=== PATIENT | female | born 1945 | race Hispanic/Latino ===

== ENCOUNTER 2017-04-08 22:03 | Inpatient (IN) | payer MEDICARE, BC ==
[2017-04-08 22:04] VITALS: BMI 27.1
--- NOTE | 2017-04-08 22:11 | ED PDOC ---
Psych Transfer Clearance - Clearance Statement Clearance Statement: Reviewed vital signs, lab results and transfer papers. Patient clinically stable for psychiatric admission.
[2017-04-08 22:15] VITALS: O2SAT 100
[2017-04-08] MEDS ORDERED: Magnesium Hydroxide Susp 30 ml UD PO PRN (22:30)
[2017-04-08] MEDS ORDERED: Bismuth Subsalicylate 262 mg/15 ml Sus (240 ml) PO PRN (22:30)
[2017-04-09 05:21] LABS: RBC URINE 4 /hpf (0-3); URINE BACTERIA RARE (<OCC); URINE BILIRUBIN NEGATIVE (NEGATIVE); URINE BLOOD SMALL (NEGATIVE); URINE COLOR YELLOW (YELLOW); URINE GLUCOSE (UA) NEG (Normal); URINE KETONE NEGATIVE (NEGATIVE); URINE LEUKOCYTE ESTERASE NEG Leu/uL (Negative); URINE PROTEIN NEGATIVE (NEGATIVE); URINE UROBILINOGEN 0.2-1.0 mg/dL (0.2-1.0); WBC URINE 5 /hpf (0-5)
[2017-04-09 07:42] LABS: IRON 32 ug/dL (37-170)
[2017-04-09 07:50] LABS: T4 6.25 ug/dl (5.5-11.0)
[2017-04-09 08:03] LABS: THYROID STIMULATING HORMONE 1.11 mIU/ML (0.46-4.68)
--- NOTE | 2017-04-09 09:40 | PCM.PSYCH ---
Initial Psychiatric Evaluation - Initial Psychiatric Evaluation Type of Admission: Voluntary Legal Status: Capacity Chief Complaint (in patient's own words): "I'm depressed." Patient's Reaction to Hospitalization: Patient is a poor historian. She can not recall her medications or dates of previous treatment. HPI: 72 yo female w/ h/o MDD, anxiety, personality disorder, presented to [facility] with complians of taking care of herself, worsening depression, and complaints that she is addicted to Ambien. Patient also has a history of benzodiazepine dependence since . Pt is currently expressed suicidal intent in the ER and requested to be admitted to secure both detoxification treatment and mental health services as patient has not been seen psychiatrically for the last several months. Patient is now denying any active suicidal ideation/plan/intent, but does report feeling that she wishes she weren 't alive due to her chronic depression. She denies psychosis. NO AH/VH/ paranoia/delusions. +Anxiety. Patient gives very limited history, unclear if it is due to cognitive deficits. Collateral from ER: progress worker spoke with the pts sister, Lulu, at 5:30pm who stated that the pt was supposed to present to the ER requesting detox as the pt abuses Ativan and Xanax. The pts sister reports that the pt has been abusing prescription medicine since 1971. The pts sister also reported that the pt was hospitalized at [facility] 2 times since . The pts sister reports that the pt is linked to to a psychiatrist which the pt is compliant with. The pts sister reports that the pt also has a bad memory due to the abuse of prescibed medication. PHx: Pt reported a history of psychiatric admissions at [facility] and outpatient treatment with Dr. Jernigan and Dr. Flowers. As per collateral history, patient has a history of multiple psychiatric admissions, most recent to [facility] 02/25/17- for MDD and personality disorder. At that time she was discharged on Ambien 5 mg PO HS, Topiramate 50 mg PO BID, Zyprexa 2.5 mg PO BID, Ativan 0.5 mg PO TID. PMHx: Anxiety, Depression, Fractures (right hip, left wrist), HTN, Hypercholesterolemia, h/o Seizures (patient unable to give more information) SHx: Pt reported graduating [employer] in [place], [place]. 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 Pt resides with her sister in [facility] in an apt. Denies ilicit drug use. Current Medications: Active Medications Generic Name Dose Route Start Last Admin Trade Name Freq PRN Reason Stop Dose Admin Acetaminophen 650 mg 04/08/17 22:30 Tylenol 325mg Tab PO Q4 PRN Pain, moderate (4-7) Al Hydrox/Mg Hydrox/Simethicone 30 ml 04/08/17 22:30 Maalox Plus 30 Ml PO Q4 PRN Dyspepsia Bismuth Subsalicylate 524 mg 04/08/17 22:30 Pepto-Bismol PO Q4 PRN Diarrhea Lorazepam 0.5 mg 04/08/17 22:30 04/08/17 23:07 Ativan PO 04/22/17 22:31 0.5 mg HS PRN Administration Insomnia Lorazepam 0.5 mg 04/09/17 09:21 Ativan PO TID PRN Anxiety Magnesium Hydroxide 30 ml 04/08/17 22:30 Milk Of Magnesia PO HS PRN Constipation Mirtazapine 15 mg 04/09/17 22:00 Remeron PO HS [place] Olanzapine 5 mg 04/09/17 22:00 Zyprexa PO HS [place] Topiramate 50 mg 04/09/17 09:30 Topamax PO BID [place] Past Psychiatric History - Past Psychiatric History Previous Treatment History: Inpatient Pertinent Medical Hx (Current Medical&Sleep Prob, Allergies): Allergies Allergy/AdvReac Type Severity Reaction Status Date / Time No Known Allergies Allergy Verified 04/08/17 22:05 Benztropine [Benztropine Mesylate] 1 mg PO TID 04/08/17 Megestrol [Megace] 40 mg PO BID 04/08/17 Mirtazapine [Remeron] 15 mg PO HS 04/08/17 Topiramate 50 mg PO BID 04/08/17 Zolpidem [Ambien] 5 mg PO HS PRN 04/08/17 Review of Systems - Psychiatric Psychiatric: As Per HPI, Abnormal Sleep Pattern, Anhedonia, Anxiety, Change in Appetite, Depression, Difficulty Concentrating, Mood Swings, Suicidal Ideation Mental Status Examination - Personal Presentation Personal Presentation: Looks stated age - Affect Affect: Constricted - Motor Activity Motor Activity: Calm - Reliability in Providing Information Reliability in Providing Information: Poor, due to cognitve impairment - Speech Speech: Coherent - Mood Mood: Depressed, Anxious - Formal Thought Process Formal Thought Process: No Impairment - Obsessions/Compulsions Obsessions: No Compulsions: No - Cognitive Functions Orientation: Person, Place, Situation, Time Sensorium: Alert Judgement: Intact, as evidence by: Insight regarding need for hospitalization Memory: Recent impaired, as evidence by: Inability to recall events of the day, Recent imparied as evidence by:Inability to complete 3/3 object recall, Remote impaired as evidenced by: Inability to recall sig life events, Remote impaired as evidenced by: Inability to recall historical events - Risk Risk: Suicidal, Diminished functioning - Strength & Assets Inventory Strength & Assets Inventory: Family support, Cooperative - Limitations Limitations: Decreased memory, recent DSM 5 DX - DSM 5 DSM 5 Diagnosis: Major Depressive Disorder, Generalized Anxiety Disorder, Benzodiazepine Abuse, Personality Disorder unspecified - Recommended/Plan of Treatment Treatment Recommendations and Plan of Treatment: -Admit to jan psychiatry -Continue medications from previous psychiatric admission: Topamax 50 mg PO BID , Ativan 0.5 mg PO TID PRN, Zyprexa 5 mg PO HS -Start Remeron 15 mg PO HS -Start Ambien -Medicine consult -Psychology consult for evaluation of dementia -Individual and group therapy -No 1:1 needed, patient can contract for safety -Disposition planning Projected ELOS: 5-7 days Prognosis: Poor Discharge Plan and Discharge Criteria: Discharge when psychiatrically stable - Smoking Cessation Smoking Cessation Initiated: No Reason for not providing: Not indicated
--- NOTE | 2017-04-09 14:36 | CP.PCM.CON ---
History of Present Illness - History of Present Illness History of Present Illness: Reason For Consult: Per protocol 71 year old F PMH HTN admitted for depression, and ambien addiction. Patient stated she had suicidal ideations in the emergency room. She denies any CP, SOB, ABD PAIN, N/V/C/D, dysuria, blood in urine or stool, melena. ROS otherwise negative, 12 systems reviewed PMH HTN PSH NONE FH NONE SH Denies tobacco, ETOH, IVDU MEDS as below, for HTN lisinopril 10 mg po daily ALLERGIES NKDA vitals: Temp Pulse Resp BP Pulse Ox 98.1 F 74 20 145/82 100 04/09/17 05:51 04/09/17 12:55 04/09/17 12:55 04/09/17 12:55 04/08/17 22:05 EXAM GEN: thin, cooperative, no acute distress HEENT: NCAT, PERLL, EOMI, MMM, no exudates HEART: S1S2+ RRR NO MRG LUNG: CTAB NO WRR ABD: SOFT NT ND EXT: NO CLUBBING CYANOSIS PULSES+ PSYCH: flat affect, appears anxious LABS: Reviewed and stable Active Medications 04/08/17 22:30 Acetaminophen [Tylenol 325mg tab] 650 mg PO Q4 PRN Aluminum Hydroxide/Magnesium [Maalox Plus 30 ml] 30 ml PO Q4 PRN Bismuth Subsalicylate [Pepto-Bismol] 524 mg PO Q4 PRN LORazepam [Ativan] 0.5 mg PO HS PRN Magnesium Hydroxide [Milk Of Magnesia] 30 ml PO HS PRN LORazepam [Ativan] 0.5 mg PO TID PRN Topiramate [Topamax] 50 mg PO BID Mirtazapine [Remeron] 15 mg PO HS OLANZapine [ZyPREXA] 5 mg PO HS ASSESSMENT AND PLAN: 71 year old F PMH HTN admitted for depression, and ambien addiction. Patient stated she had suicidal ideations in the emergency room. HTN continue lisinopril 10 mg po daily Depression and Ambien addiction management per psych Past Patient History - Past Social History Smoking Status: Never Smoked - CARDIAC Hx Cardiac Disorders: Yes Hx Hypercholesterolemia: Yes Hx Hypertension: Yes - PULMONARY Hx Respiratory Disorders: No Hx Tuberculosis: No - NEUROLOGICAL HX Cerebrovascular Accident: No Hx Seizures: No - HEENT Hx HEENT Problems: No - RENAL Hx Chronic Kidney Disease: No - ENDOCRINE/METABOLIC Hx Endocrine Disorders: No - HEMATOLOGICAL/ONCOLOGICAL Hx Blood Disorders: No Hx Cancer: No Hx Human Immunodeficiency Virus (HIV): No - INTEGUMENTARY Hx Dermatological Problems: No - MUSCULOSKELETAL/RHEUMATOLOGICAL Hx Musculoskeletal Disorders: Yes Hx Falls: Yes Hx Fractures: Yes (R hip, L wrist) - GASTROINTESTINAL Hx Gastrointestinal Disorders: No - GENITOURINARY/GYNECOLOGICAL Hx Sexually Transmitted Disorders: No - PSYCHIATRIC Hx Anxiety: Yes Hx Depression: Yes Hx Substance Use: No - SURGICAL HISTORY Hx Surgeries: Yes Other/Comment: R hip, L wrist - ANESTHESIA Hx Anesthesia: Yes Hx Anesthesia Reactions: No Hx Malignant Hyperthermia: No Has any member of the family had a problem w/ anesthesia?: No Meds Allergies/Adverse Reactions: Allergies Allergy/AdvReac Type Severity Reaction Status Date / Time No Known Allergies Allergy Verified 04/08/17 22:05 - Medications Medications: Current Medications Acetaminophen (Tylenol 325mg Tab) 650 mg PO Q4 PRN PRN Reason: Pain, moderate (4-7) Al Hydrox/Mg Hydrox/Simethicone (Maalox Plus 30 Ml) 30 ml PO Q4 PRN PRN Reason: Dyspepsia Bismuth Subsalicylate (Pepto-Bismol) 524 mg PO Q4 PRN PRN Reason: Diarrhea Lorazepam (Ativan) 0.5 mg PO HS PRN PRN Reason: Insomnia Stop: 04/22/17 22:31 Last Admin: 04/08/17 23:07 Dose: 0.5 mg Lorazepam (Ativan) 0.5 mg PO TID PRN PRN Reason: Anxiety Last Admin: 04/09/17 12:52 Dose: 0.5 mg Magnesium Hydroxide (Milk Of Magnesia) 30 ml PO HS PRN PRN Reason: Constipation Mirtazapine (Remeron) 15 mg PO HS [place] Olanzapine (Zyprexa) 5 mg PO HS [place] Topiramate (Topamax) 50 mg PO BID [place] Last Admin: 04/09/17 12:53 Dose: 50 mg Results - Vital Signs Recent Vital Signs: Last Vital Signs Temp 98.1 F 04/09/17 05:51 Pulse 74 04/09/17 12:55 Resp 20 04/09/17 12:55 BP 145/82 04/09/17 12:55 Pulse Ox 100 04/08/17 22:05 - Labs Labs: Laboratory Results - last 24 hr 04/09/17 04/09/17 04/09/17 04:20 06:35 06:35 Hemoglobin A1c 5.5 Iron TIBC % Saturation Ferritin 16.4 Triglycerides 101 Cholesterol 213 H LDL Cholesterol Direct 148 H HDL Cholesterol 46 Vitamin B12 257 Thyroxine (T4) 6.25 Total T3 0.927 L TSH 3rd Generation 1.11 Urine Color Yellow Urine Clarity Clear Urine pH 6.0 Ur Specific Diamond 1.016 Urine Protein Negative Urine Glucose (UA) Neg Urine Ketones Negative Urine Blood Small Urine Nitrate Positive H Urine Bilirubin Negative Urine Urobilinogen 0.2-1.0 Ur Leukocyte Esterase Neg Urine RBC (Auto) 4 H Urine Microscopic WBC 5 Urine Bacteria Rare 04/09/17 06:35 Hemoglobin A1c Iron 32 L TIBC 300 % Saturation 11 L Ferritin Triglycerides Cholesterol LDL Cholesterol Direct HDL Cholesterol Vitamin B12 Thyroxine (T4) Total T3 TSH 3rd Generation Urine Color Urine Clarity Urine pH Ur Specific Diamond Urine Protein Urine Glucose (UA) Urine Ketones Urine Blood Urine Nitrate Urine Bilirubin Urine Urobilinogen Ur Leukocyte Esterase Urine RBC (Auto) Urine Microscopic WBC Urine Bacteria
[2017-04-09] MEDS: Alum-Mag Hydrox-Simethicone Susp (30 mL) PO PRN (17:34)
[2017-04-10] MEDS: Alum-Mag Hydrox-Simethicone Susp (30 mL) PO PRN (08:45)
--- NOTE | 2017-04-10 10:00 | PCM.PYCHPN ---
Psychiatric Progress Note - Psychiatric Progress Note Patient seen today, length of contact: Patient evaluated, case discussed with team, chart reviewed, 35 min Patient Chief Complaint: "I'm going through Ambien withdrawal" Problems Identified/Issues Discussed: Patient was angry was staff yesterday because they would not give her more medications, made inappropriate comments to the nurse and then signed a 48 hour letter requesting discharge. This morning, the patient is calmer and states that she does to want to leave the hospital because she believes she is too sick to leave and is preoccupied worries that she is going through Ambien withdrawal, despite receiving psychoeducation from the com writer. She retracted the 48 hour letter. She is very dependent on people and medications. She is somatically preoccupied. She continues to report depression, anxiety and hopelessness. Medication Change: Yes (Start Vistaril 50 mg PO Q8 hr PRN) Medical Record Reviewed: Yes Consults ordered or reviewed: Medicine consult Mental Status Examination - Cognitive Function Orientation: Person, Place, Situation, Time Memory: Impaired Association: Loose - Mood Mood: Depressed, Anxious - Affect Affect: Constricted - Speech Speech: Soft - Formal Thought Process Formal Thought Process: No Impairment Psychotic Thoughts and Behaviors: Somatic preoccupations - Suicidal Ideation Suicidal Ideation: No - Homicidal Ideation Homicidal Ideation: No Goal/Treatment Plan - Goal/Treatment Plan Need for Continued Stay: Remain at risks for inpatient hospitalization, Severe depression anxiety, Discharge may exacerbated symptoms, Severe functional impairment Progress Toward Problem(s) and Goals/Treatment Plan: 72 yo female w/ Major Depressive Disorder, Generalized Anxiety Disorder, Benzodiazepine Abuse, Personality Disorder unspecified, continues to report anxiety, depression and is preoccupied that she is going through Ambien withdrawal. -Continue Topamax 50 mg PO BID, Ativan 0.5 mg PO TID PRN, Zyprexa 5 mg PO HS, Remeron 15 mg PO HS -Ambien stopped -Medicine consult appreciated -Vistaril 50 mg PO Q8hr PRN anxiety -Psychology consult for evaluation of dementia -Individual and group therapy -No 1:1 needed, patient can contract for safety -Disposition planning Estimated Date of D/C: 04/14/17
--- NOTE | 2017-04-10 10:21 | CP.PCM.CON ---
History of Present Illness - History of Present Illness History of Present Illness: PT is a 72 year old female admitted to [facility] and referred to the typewriter aligner for evaluation. Med hx positve for HTN, high cholersteol, hip and wrist fractures, anxiety/depression. See medical record for medications prescribed. Social History: pt reported living with her sister. She never and has no children. She reported that her sister does the bills within the home and she helps with cooking and cleaning. Ed.Voc: pt reported being raised between [place] and [place]. 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 Psych: pt reported a long history of depression/anxiety with a number of inpatient hospitaizations. She denied a history of alcohol/substance abuse. Pt spoke of participating in little activity prior to admission due to her depression/anxiety/ she acknowledged memory deficits prior to admission. On testing, patient required significant encouragement to participate. She refused visual exercises and explained she was unable "to see due to cataracts. " On the subtests provided, she scored in the Deficient Range on Attention, Initiation and Memory tasks. Conceptualization skills fell within normal limits. Deficits on testing were consistent with her reported decline in memory reported. Initiation 18 (32+ = intact skills) Memory 16> (32+= intact cognitive skills) Attention 26 (32=+ intact cognitive skills) Thank you for this referral, Dx: Depression/Anxiety cognitive impairment Past Patient History - Past Social History Smoking Status: Never Smoked - CARDIAC Hx Cardiac Disorders: Yes Hx Hypercholesterolemia: Yes Hx Hypertension: Yes - PULMONARY Hx Respiratory Disorders: No Hx Tuberculosis: No - NEUROLOGICAL HX Cerebrovascular Accident: No Hx Seizures: No - HEENT Hx HEENT Problems: No - RENAL Hx Chronic Kidney Disease: No - ENDOCRINE/METABOLIC Hx Endocrine Disorders: No - HEMATOLOGICAL/ONCOLOGICAL Hx Blood Disorders: No Hx Cancer: No Hx Human Immunodeficiency Virus (HIV): No - INTEGUMENTARY Hx Dermatological Problems: No - MUSCULOSKELETAL/RHEUMATOLOGICAL Hx Musculoskeletal Disorders: Yes Hx Falls: Yes Hx Fractures: Yes (R hip, L wrist) - GASTROINTESTINAL Hx Gastrointestinal Disorders: No - GENITOURINARY/GYNECOLOGICAL Hx Sexually Transmitted Disorders: No - PSYCHIATRIC Hx Anxiety: Yes Hx Depression: Yes Hx Substance Use: No - SURGICAL HISTORY Hx Surgeries: Yes Other/Comment: R hip, L wrist - ANESTHESIA Hx Anesthesia: Yes Hx Anesthesia Reactions: No Hx Malignant Hyperthermia: No Has any member of the family had a problem w/ anesthesia?: No Meds Allergies/Adverse Reactions: Allergies Allergy/AdvReac Type Severity Reaction Status Date / Time No Known Allergies Allergy Verified 04/08/17 22:05 - Medications Medications: Current Medications Acetaminophen (Tylenol 325mg Tab) 650 mg PO Q4 PRN PRN Reason: Pain, moderate (4-7) Al Hydrox/Mg Hydrox/Simethicone (Maalox Plus 30 Ml) 30 ml PO Q4 PRN PRN Reason: Dyspepsia Last Admin: 04/10/17 08:45 Dose: 30 ml Bismuth Subsalicylate (Pepto-Bismol) 524 mg PO Q4 PRN PRN Reason: Diarrhea Hydroxyzine Pamoate (Vistaril) 50 mg PO Q8 PRN PRN Reason: Anxiety Lorazepam (Ativan) 0.5 mg PO HS PRN PRN Reason: Insomnia Stop: 04/22/17 22:31 Last Admin: 04/08/17 23:07 Dose: 0.5 mg Lorazepam (Ativan) 0.5 mg PO TID PRN PRN Reason: Anxiety Last Admin: 04/10/17 08:45 Dose: 0.5 mg Magnesium Hydroxide (Milk Of Magnesia) 30 ml PO HS PRN PRN Reason: Constipation Mirtazapine (Remeron) 15 mg PO HS [facility] Last Admin: 04/09/17 21:10 Dose: 15 mg Nitrofurantoin Macrocrystals (Macrobid) 100 mg PO Q12 [facility] Last Admin: 04/10/17 08:46 Dose: 100 mg Olanzapine (Zyprexa) 5 mg PO HS [facility] Last Admin: 04/09/17 21:10 Dose: 5 mg Topiramate (Topamax) 50 mg PO BID [facility] Last Admin: 04/10/17 08:46 Dose: 50 mg Results - Vital Signs Recent Vital Signs: Last Vital Signs Temp 98.1 F 04/10/17 05:45 Pulse 88 04/10/17 05:45 Resp 18 04/10/17 05:45 BP 133/79 04/10/17 05:45 Pulse Ox 100 04/08/17 22:05 - Labs Labs: Laboratory Results - last 24 hr 04/09/17 04/09/17 04/09/17 06:35 06:35 06:35 Hemoglobin A1c 5.5 Folate 10.0 RPR Nonreactive
--- NOTE | 2017-04-11 09:50 | PCM.PYCHPN ---
Psychiatric Progress Note - Psychiatric Progress Note Patient seen today, length of contact: Patient evaluated, case discussed with team, chart reviewed, 35 min Patient Chief Complaint: pt has remained very needy and c/o anxiety and vey med seeking.pt has been started on vistaril for anxiety and also on ativan and still c/o anxiety Medication Change: Yes (Start Vistaril 50 mg PO Q8 hr PRN) Medical Record Reviewed: Yes Mental Status Examination - Cognitive Function Orientation: Person, Place, Situation, Time Memory: Impaired Association: Loose - Mood Mood: Depressed, Anxious - Affect Affect: Constricted - Speech Speech: Soft - Formal Thought Process Formal Thought Process: No Impairment - Suicidal Ideation Suicidal Ideation: No - Homicidal Ideation Homicidal Ideation: No Goal/Treatment Plan - Goal/Treatment Plan Need for Continued Stay: Remain at risks for inpatient hospitalization, Severe depression anxiety, Discharge may exacerbated symptoms, Severe functional impairment Estimated Date of D/C: 04/14/17
--- NOTE | 2017-04-12 12:48 | CP.PCM.CON ---
History of Present Illness - History of Present Illness History of Present Illness: -Iron Deficiency Ferrous Sulfate 325 mg PO 2x/day has been ordered to be given with food Considering the Iron Deficiency, the complaint of blood while having bowel movement, and patient age, she should be instructed upon discharge from In- Patient Psychiatry to follow up with her PMD for referral to [facility] for Colonoscopy to make sure that there is NO colonic mass Monitor the CBC and it has been ordered for 04/13/17 Los Rahman D.O. Past Patient History - Past Social History Smoking Status: Never Smoked - CARDIAC Hx Cardiac Disorders: Yes Hx Hypercholesterolemia: Yes Hx Hypertension: Yes - PULMONARY Hx Respiratory Disorders: No Hx Tuberculosis: No - NEUROLOGICAL HX Cerebrovascular Accident: No Hx Seizures: No - HEENT Hx HEENT Problems: No - RENAL Hx Chronic Kidney Disease: No - ENDOCRINE/METABOLIC Hx Endocrine Disorders: No - HEMATOLOGICAL/ONCOLOGICAL Hx Blood Disorders: No Hx Cancer: No Hx Human Immunodeficiency Virus (HIV): No - INTEGUMENTARY Hx Dermatological Problems: No - MUSCULOSKELETAL/RHEUMATOLOGICAL Hx Musculoskeletal Disorders: Yes Hx Falls: Yes Hx Fractures: Yes (R hip, L wrist) - GASTROINTESTINAL Hx Gastrointestinal Disorders: No - GENITOURINARY/GYNECOLOGICAL Hx Sexually Transmitted Disorders: No - PSYCHIATRIC Hx Anxiety: Yes Hx Depression: Yes Hx Substance Use: No - SURGICAL HISTORY Hx Surgeries: Yes Other/Comment: R hip, L wrist - ANESTHESIA Hx Anesthesia: Yes Hx Anesthesia Reactions: No Hx Malignant Hyperthermia: No Has any member of the family had a problem w/ anesthesia?: No Meds Allergies/Adverse Reactions: Allergies Allergy/AdvReac Type Severity Reaction Status Date / Time No Known Allergies Allergy Verified 04/08/17 22:05 - Medications Medications: Current Medications Acetaminophen (Tylenol 325mg Tab) 650 mg PO Q4 PRN PRN Reason: Pain, moderate (4-7) Last Admin: 04/12/17 11:05 Dose: 650 mg Al Hydrox/Mg Hydrox/Simethicone (Maalox Plus 30 Ml) 30 ml PO Q4 PRN PRN Reason: Dyspepsia Last Admin: 04/10/17 08:45 Dose: 30 ml Bismuth Subsalicylate (Pepto-Bismol) 524 mg PO Q4 PRN PRN Reason: Diarrhea Ferrous Sulfate (Feosol) 325 mg PO BID [place] Hydroxyzine Pamoate (Vistaril) 50 mg PO Q8 PRN PRN Reason: Anxiety Last Admin: 04/10/17 11:37 Dose: 50 mg Lorazepam (Ativan) 0.5 mg PO HS PRN PRN Reason: Insomnia Stop: 04/22/17 22:31 Last Admin: 04/08/17 23:07 Dose: 0.5 mg Lorazepam (Ativan) 0.5 mg PO TID PRN PRN Reason: Anxiety Last Admin: 04/12/17 11:16 Dose: 0.5 mg Magnesium Hydroxide (Milk Of Magnesia) 30 ml PO HS PRN PRN Reason: Constipation Mirtazapine (Remeron) 15 mg PO HS [facility] Last Admin: 04/11/17 21:06 Dose: 15 mg Nitrofurantoin Macrocrystals (Macrobid) 100 mg PO Q12 [facility] Last Admin: 04/12/17 08:36 Dose: 100 mg Olanzapine (Zyprexa) 5 mg PO HS [facility] Last Admin: 04/11/17 21:05 Dose: 5 mg Topiramate (Topamax) 50 mg PO BID [facility] Last Admin: 04/12/17 08:36 Dose: 50 mg Results - Vital Signs Recent Vital Signs: Last Vital Signs Temp 97.2 F L 04/12/17 05:37 Pulse 97 H 04/12/17 05:37 Resp 20 04/12/17 05:37 BP 168/90 H 04/12/17 05:37 Pulse Ox 100 04/08/17 22:05
[2017-04-12] MEDS: Alum-Mag Hydrox-Simethicone Susp (30 mL) PO PRN ×2 (14:50→22:44)
--- NOTE | 2017-04-12 18:30 | PCM.PYCHPN ---
Psychiatric Progress Note - Psychiatric Progress Note Patient seen today, length of contact: Patient evaluated, case discussed with team, chart reviewed, 35 min Patient Chief Complaint: pt has remained very needy and c/o anxiety and vey med seeking.pt has been started on vistaril for anxiety and also on ativan and still c/o anxiety Medication Change: Yes (pt agreed to take vistaril 25mg q8hr prn) Medical Record Reviewed: Yes Mental Status Examination - Cognitive Function Orientation: Person, Place, Situation, Time Memory: Impaired Association: Loose - Mood Mood: Depressed, Anxious - Affect Affect: Constricted - Speech Speech: Soft - Formal Thought Process Formal Thought Process: No Impairment - Suicidal Ideation Suicidal Ideation: No - Homicidal Ideation Homicidal Ideation: No Goal/Treatment Plan - Goal/Treatment Plan Need for Continued Stay: Remain at risks for inpatient hospitalization, Severe depression anxiety, Discharge may exacerbated symptoms, Severe functional impairment Estimated Date of D/C: 04/14/17
--- NOTE | 2017-04-12 19:09 | CP.PCM.PCO ---
Physician Communication Note - Physician Communication Note Physician Communication Note: Metoprolol 25 mg PO Q12H added for elevated blood pressure
--- NOTE | 2017-04-12 19:10 | CP.PCM.PCO ---
Physician Communication Note - Physician Communication Note Physician Communication Note: Nitrofurantoin D/C'd and Cipro 500 2x/day till 04/16 for UTI 04/09/17
[2017-04-13 09:15] LABS: BASO % 0.3 % (0.0-2.0); HEMATOCRIT 35.8 % (34.0-47.0); LYMPH # 0.4 K/uL (1.0-4.3); LYMPH % 9.4 % (20.0-40.0); MEAN CELL VOLUME 85.2 fl (81.0-99.0); MEAN CORPUSCULAR HEMOGLOBIN 28.4 pg (27.0-31.0); MEAN CORPUSCULAR HGB CONC 33.4 g/dL (33.0-37.0); MEAN PLATELET VOLUME 8.4 fl (7.2-11.7); MONO # 0.6 K/uL (0.0-0.8); MONO % 15.9 % (0.0-10.0); NEUT # 2.8 K/uL (1.8-7.0); NEUT % 74.4 % (50.0-75.0); NRBC % 0.1 % (0.0-0.0); PLATELET COUNT 180 K/uL (130-400); RED CELL DISTRIBUTION WIDTH 22.1 % (11.5-14.5); WHITE BLOOD COUNT 3.7 K/uL (4.8-10.8)
--- NOTE | 2017-04-13 10:46 | PCM.PYCHPN ---
Psychiatric Progress Note - Psychiatric Progress Note Patient seen today, length of contact: Patient evaluated, case discussed with team, chart reviewed, 35 min Patient Chief Complaint: "I'm anxious" Problems Identified/Issues Discussed: Patient continues to report anxiety, but seems to be calmer on the unit. She is somatically preoccupied which seems to be her baseline. Medication Change: No Medical Record Reviewed: Yes Consults ordered or reviewed: Medicine consult- on Cipro for UTI Mental Status Examination - Cognitive Function Orientation: Person, Place, Situation, Time Memory: Impaired Association: Loose Decription of patient's judgement and insights: Poor insight/ judgment - Mood Mood: Depressed, Anxious - Affect Affect: Constricted - Speech Speech: Soft - Formal Thought Process Formal Thought Process: No Impairment Psychotic Thoughts and Behaviors: No AH/VH/paranoia - Suicidal Ideation Suicidal Ideation: No - Homicidal Ideation Homicidal Ideation: No Goal/Treatment Plan - Goal/Treatment Plan Need for Continued Stay: Severe depression anxiety Progress Toward Problem(s) and Goals/Treatment Plan: 72 yo female w/ Major Depressive Disorder, Generalized Anxiety Disorder, Benzodiazepine Abuse, Personality Disorder unspecified, continues to report anxiety, but seems to have anxiety and somatic preoccupation at her baseline. -Continue Topamax 50 mg PO BID, Ativan 0.5 mg PO TID PRN, Zyprexa 5 mg PO HS, Remeron 15 mg PO HS -Ambien stopped -Medicine consult appreciated -Vistaril 25 mg PO Q8hr PRN anxiety -Psychology consult appreciated -Individual and group therapy -Disposition planning Estimated Date of D/C: 04/14/17
[2017-04-13 12:13] LABS: BASOPHIL 1 % (0-2); NEUTROPHIL 68 % (42-75); TOTAL CELLS COUNTED 100
[2017-04-13] MEDS: Alum-Mag Hydrox-Simethicone Susp (30 mL) PO PRN (13:51)
--- NOTE | 2017-04-14 10:12 | PCM.PYCHPN ---
Psychiatric Progress Note - Psychiatric Progress Note Patient seen today, length of contact: Patient evaluated, case discussed with team, chart reviewed, 35 min Patient Chief Complaint: "I'm anxious" Problems Identified/Issues Discussed: Patient continues to report anxiety, and is psychologically dependent on medications. She frequently asks the nurses for any PRNs she can take. She has poor insight into her addictive behavior. She is somatically preoccupied which seems to be her baseline. Medication Change: Yes (Taper Ativan to 0.5 mg PO BID PRN anxiety) Medical Record Reviewed: Yes Mental Status Examination - Cognitive Function Orientation: Person, Place, Situation, Time Memory: Impaired Association: Loose Decription of patient's judgement and insights: Poor insight/ judgment - Mood Mood: Depressed, Anxious - Affect Affect: Constricted - Speech Speech: Soft - Formal Thought Process Formal Thought Process: No Impairment Psychotic Thoughts and Behaviors: No AH/VH/paranoia - Suicidal Ideation Suicidal Ideation: No - Homicidal Ideation Homicidal Ideation: No Goal/Treatment Plan - Goal/Treatment Plan Need for Continued Stay: Severe depression anxiety Progress Toward Problem(s) and Goals/Treatment Plan: 72 yo female w/ Major Depressive Disorder, Generalized Anxiety Disorder, Benzodiazepine Abuse, Personality Disorder unspecified, continues to report anxiety, but seems to have anxiety and somatic preoccupation at her baseline. -Continue Topamax 50 mg PO BID, Zyprexa 5 mg PO HS, Remeron 15 mg PO HS -Ambien stopped -Ativan 0.5 mg PO BID PRN, -Medicine consult appreciated -Vistaril 25 mg PO Q8hr PRN anxiety -Psychology consult appreciated -Individual and group therapy -Disposition planning Estimated Date of D/C: 04/15/17
[2017-04-15 05:43] VITALS: PULSE 79; RESP 18; TEMP 97.3
[2017-04-15 08:42] VITALS: BP 140/78
--- NOTE | 2017-04-15 09:27 | PCM.PYCHDC ---
Mental Status Examination - Mental Status Examination Orientation: Person, Place, Situation, Time Memory: Impaired Mood: Anxious Affect: Broad Speech: Appropriate Attention: Poor Association: WNL Fund of Knowledge: Poor Formal Thought Process: No Impairment Description of patient's judgement and insight: Poor insight/ judgment Psychotic Thoughts and Behaviors: No AH/VH/paranoia Suicidal Ideation: No Current Homicidal Ideation?: No Discharge Summary - Discharge Note Reason for Hospitalization: Patient is a poor historian. She can not recall her medications or dates of previous treatment. HPI: 72 yo female w/ h/o MDD, anxiety, personality disorder, presented to [facility] with complians of taking care of herself, worsening depression, and complaints that she is addicted to Ambien. Patient also has a history of benzodiazepine dependence since . Pt is currently expressed suicidal intent in the ER and requested to be admitted to secure both detoxification treatment and mental health services as patient has not been seen psychiatrically for the last several months. Patient is now denying any active suicidal ideation/plan/intent, but does report feeling that she wishes she weren 't alive due to her chronic depression. She denies psychosis. NO AH/VH/ paranoia/delusions. +Anxiety. Patient gives very limited history, unclear if it is due to cognitive deficits. Collateral from ER: nursing home social worker spoke with the pts sister, Lulu, at 5:30pm who stated that the pt was supposed to present to the ER requesting detox as the pt abuses Ativan and Xanax. The pts sister reports that the pt has been abusing prescription medicine since 1971. The pts sister also reported that the pt was hospitalized at [facility] 2 times since . The pts sister reports that the pt is linked to to a psychiatrist which the pt is compliant with. The pts sister reports that the pt also has a bad memory due to the abuse of prescibed medication. PHx: Pt reported a history of psychiatric admissions at [facility] and outpatient treatment with Dr. Jernigan and Dr. Flowers. As per collateral history, patient has a history of multiple psychiatric admissions, most recent to [facility] 02/25/17- for MDD and personality disorder. At that time she was discharged on Ambien 5 mg PO HS, Topiramate 50 mg PO BID, Zyprexa 2.5 mg PO BID, Ativan 0.5 mg PO TID. PMHx: Anxiety, Depression, Fractures (right hip, left wrist), HTN, Hypercholesterolemia, h/o Seizures (patient unable to give more information) SHx: Pt reported graduating [employer] in [place], [place]. [place], used to work as an Equipment Associate. Pt resides with her sister in [facility] in an apt. Denies ilicit drug use. Consultations:: List each consultation separately and include: 1. Reason for request. 2. Findings. 3. Follow-up Consultations: Medicine consult- on Cipro for UTI Summary of Hospital Course include:: 1. Description of specific treatment plan utilized for patients during their course of treatmen. 2. Summarize the time- course for resolution of acute symptoms and/or regressed behaviors. 3. Describe issues identified and worked on during hospitalization. 4. Describe medication utilized. 5. Describe medical problems identified and treated. 6. Reassessment of suicide risk Summary of Hospital Course: Patient admitted to the jan psychiatry unit. She was restabilized on Zyprexa 5 mg PO HS, Remeron 15 mg PO HS and Vistaril 25 mg PO Q8hr PRN. She was tapered off Ativan and Ambien. Patient was offered inpatient substance abuse rehab for her chronic benzodiazepine abuse, but she declined. Patient will return to her sister's house under the care of her sister. She reports improvement in anxiety and depression and is psychiatrically stable for discharge. - Final Diagnosis (DSM 5) Condition upon Discharge: STABLE DSM 5: Major Depressive Disorder, Generalized Anxiety Disorder, Benzodiazepine Use Disorder, Personality Disorder unspecified Disposition: HOME/ ROUTINE Follow-up Treatment Plan: 72 yo female w/ Major Depressive Disorder, Generalized Anxiety Disorder, Benzodiazepine Abuse, Personality Disorder unspecified, now improved clinically and is psychiatrically stable for discharge under the care of her sister. -Continue Topamax 50 mg PO BID, Zyprexa 5 mg PO HS, Remeron 15 mg PO HS -Ambien +Ativan stopped -Medicine consult appreciated, patient on Cipro until 04/16 for a UTI -Vistaril 25 mg PO Q8hr PRN anxiety -Psychology consult appreciated -Individual and group therapy -Disposition planning Prescriptions/Medication Reconciliation: Ciprofloxacin [Cipro] 500 mg PO Q12 #3 tab Ferrous Sulfate [Feosol] 325 mg PO BID #60 tab hydrOXYzine Pamoate [Vistaril] 25 mg PO Q8 PRN #90 cap PRN Reason: Anxiety Metoprolol Tartrate [Lopressor] 25 mg PO BID #60 Mirtazapine [Remeron] 15 mg PO HS #30 Olanzapine [Zyprexa] 5 mg PO HS #30 tablet Topiramate 50 mg PO BID #60 - Smoking Cessation Smoking Cessation Medication prescribed: No Reason for not providing: Not indicated - Antipsychotic Medications Pt discharged on 2 or more routine antipsychotic medications: No
== END 2017-04-15 11:00 | disposition home or self-care (01) | DRG 881 ==
LOC: H.ER 22:03 → H.STEP 22:11
PROVIDERS: ADMIT Psychiatry & Neurology Psychiatry; ATTEND Psychiatry & Neurology Psychiatry
PROC: GZ51ZZZ Individual Psychotherapy, Behavioral (ICD-10-PCS; principal; 2017-04-08)
DX: F32.9 Major depressive disorder, single episode, unspecified (principal); R45.851 Suicidal ideations; N39.0 Urinary tract infection, site not specified; R56.9 Unspecified convulsions; F13.239 Sedative, hypnotic or anxiolytic dependence with withdrawal, unspecified; I10 Essential (primary) hypertension; E61.1 Iron deficiency; E78.00 Pure hypercholesterolemia, unspecified; F13.10 Sedative, hypnotic or anxiolytic abuse, uncomplicated; F41.1 Generalized anxiety disorder; F60.9 Personality disorder, unspecified